=== PATIENT | female | born 1965 | race Caucasian/White ===

== ENCOUNTER 2017-07-06 08:42 | Observation (INO) | payer MEDICAID ==
[~2017-07-06] VITALS: Ht 175.3 cm; Wt 101.9 kg
--- NOTE | ~2017-07-06 | EC ---
PATIENT:ESTHER BARCENAS DATE OF SERVICE: 07/06/17 SEX: F MEDICAL RECORD: [id number] DATE OF : 65 LOCATION:D.M2 D.212 AGE OF PATIENT: 51 ADMISSION DATE: 07/06/17 REFERRING PHYSICIAN: INTERPRETING PHYSICIAN: RADHA ROLLINS MD ECHOCARDIOGRAM REPORT ECHO CHARGES 4 ECHO COMPLETE CLINICAL DIAGNOSIS: CP ECHOCARDIOGRAPHIC MEASUREMENTS (adult normal given) AC root (d.<3.7cm) 2.5 cm LV Septum d (<1.2 cm> 1.5 cm Valve Excursion 1.7 cm LV Septum (systole) 2.0 cm Left Atria (s.<4.0cm> 3.1 cm LVPW d(<1.2cm) 1.4 cm RV (d.<2.3cm) 2.7 cm LVPW (sytole) 1.8 cm LV diastole(<5.6CM) 4.9 cm MV E-F(>70mm/sec) cm LV systole 3.0 cm LVOT Diameter 1.7 cm MV exc.(>10mm) cm Est.ejection fraction (50-75%) % Pericardial Effusion N DOPPLER: LVIT cm/sec A 59.0 cm/sec E 82.0 cm/sec LA cm/sec RVSP 24.4 mmHg LVOT 111 cm/sec AOP1/2T m/s Asc. Ao 159 cm/sec RVOT 60.0 cm/sec RA cm/sec PA 77.0 cm/sec AV Gradient Peak 10.2 mmHg AV Mean 5.2 mmHg AV Area 1.4 cm MV Gradient Peak 2.9 mmHg MV Mean 1.0 mmHg MV Area cm COMMENTS: Equipment Maintenance Supervisor: Cammie [place] Crimper Assembler: Roger Rollins TAPE# PACS DATE OF SERVICE: 07/07/2017 Echocardiogram Report FINDINGS: 1. The left ventricular ejection fraction is normal at 60%. The left ventricle has mild left ventricular hypertrophy. Inflow characteristics are normal. 2. The left atrium has normal size and normal function. 3. The right ventricle shows normal size and normal function. 4. The right atrium has normal size and normal function. ECHOCARDIOGRAM REPORT [id number] ESTHER BARCENAS 5. The aortic valve is normal trileaflet in structure and function. 6. The mitral valve is normal and there is no significant evidence for mitral regurgitation or mitral stenosis. 7. The tricuspid valve is normal. 8. The pulmonic valve is not well visualized and normal. 9. The pericardium is normal and there is no pericardial effusion. TRANSINT:[id number] Voice Confirmation ID: [id number] DOCUMENT ID: [id number] RADHA ROLLINS MD CC: [id number] DICTATION DATE: 07/09/172007 SHODER FILLER: 07/09/17 2307 DIS IN 07/07/17 [facility] [address] [id number]
--- NOTE | ~2017-07-06 | EC ---
PATIENT:ESTHER BARCENAS DATE OF SERVICE: 07/06/17 SEX: F MEDICAL RECORD: [id number] DATE OF : 65 LOCATION:D.M2 D.212 AGE OF PATIENT: 51 ADMISSION DATE: 07/06/17 REFERRING PHYSICIAN: INTERPRETING PHYSICIAN: RADHA ROLLINS MD ECHOCARDIOGRAM REPORT ECHO CHARGES 4 ECHO COMPLETE CLINICAL DIAGNOSIS: CP ECHOCARDIOGRAPHIC MEASUREMENTS (adult normal given) AC root (d.<3.7cm) 2.5 cm LV Septum d (<1.2 cm> 1.5 cm Valve Excursion 1.7 cm LV Septum (systole) 2.0 cm Left Atria (s.<4.0cm> 3.1 cm LVPW d(<1.2cm) 1.4 cm RV (d.<2.3cm) 2.7 cm LVPW (sytole) 1.8 cm LV diastole(<5.6CM) 4.9 cm MV E-F(>70mm/sec) cm LV systole 3.0 cm LVOT Diameter 1.7 cm MV exc.(>10mm) cm Est.ejection fraction (50-75%) % Pericardial Effusion N DOPPLER: LVIT cm/sec A 59.0 cm/sec E 82.0 cm/sec LA cm/sec RVSP 24.4 mmHg LVOT 111 cm/sec AOP1/2T m/s Asc. Ao 159 cm/sec RVOT 60.0 cm/sec RA cm/sec PA 77.0 cm/sec AV Gradient Peak 10.2 mmHg AV Mean 5.2 mmHg AV Area 1.4 cm MV Gradient Peak 2.9 mmHg MV Mean 1.0 mmHg MV Area cm COMMENTS: Gasfitter: Cammie PACK [employer] Cameraman: 4 Dr. Rollins TAPE# PACS DATE OF SERVICE: 07/09/2017 The patient underwent a nuclear stress test. FINDINGS: The patient had the rest injections of 12.5 mCi sestamibi injected at 7:05 in the morning. Then, after standard Lexiscan protocol, which she tolerated without any difficulty, she had 31 mCi of sestamibi injected at 10:20. The patient was shown to do very well to the test. Imaging showed no evidence of ischemia or LV dysfunction. The ejection fraction was calculated to be normal at 65%. The procedure was terminated because of the completion of the ECHOCARDIOGRAM REPORT [id number] ESTHER BARCENAS test. CONCLUSION: Test is negative for ischemia. TRANSINT:[id number] Voice Confirmation ID: [id number] DOCUMENT ID: [id number] ARDHA ROLLINS MD CC: [id number] DICTATION DATE: 07/09/172003 GROUND WIRER: 07/09/17 2317 DIS IN 07/07/17 [facility] [address] [id number]
[2017-07-06 09:26] LABS: BASOPHILS 0.2 % (0-2); EOSINOPHILS 2.9 % (0-7); HEMATOCRIT 43.6 % (36.0-48.0); HEMOGLOBIN 14.8 g/dL (12-16); IMMATURE GRANULOCYTES 0.2 % (0-5); LYMPHOCYTES 32.8 % (15-50); MCH 26.3 pg (26.0-34.0); MCHC 33.9 g/dL (31.0-37.0); MCV 77.4 fL (80.0-100.0); MEAN PLATELET VOLUME 10.1 fL (7.4-10.4); MONOCYTES 6.7 % (2-11); NEUTROPHILS 57.2 % (40-80); PLATELET COUNT 209 10x3/uL (130-400); RBC 5.63 10x6/uL (4.00-5.40); RDW 17.2 % (11.5-14.5); WBC 4.8 10x3/uL (4.8-10.8)
[2017-07-06 09:42] LABS: ALKALINE PHOSPHATASE 124 U/L (46-116); ALT (SGPT) 41 U/L (10-68); BILIRUBIN - TOTAL 0.19 mg/dL (0.2-1.3); CALC OSMOLALITY 283 mosm/kg (275-300); CARBON DIOXIDE 26.7 mmol/L (21.0-32.0); CHLORIDE - SERUM 105 mmol/L (98-107); CREATININE - SERUM 0.8 mg/dL (0.6-1.3); GLUCOSE 96 mg/dL (74-106); POTASSIUM - SERUM 4.1 mmol/L (3.5-5.1); PROTEIN - SERUM 7.4 g/dL (6.4-8.2); SODIUM 141 mmol/L (136-145); UREA NITROGEN 20 mg/dL (7-18); eGFR NON AFRICAN AMERICAN 80 mL/min (90-120)
[2017-07-06 09:57] LABS: CKMB 1.3 U/L (0.0-3.6); CREATINE KINASE 116 UL (21-215)
[2017-07-06 10:00] LABS: TROPONIN-I < 0.017 ng/mL (0.000-0.060)
[2017-07-06] MEDS ORDERED: ELIQUIS5 MG PO (11:28)
[2017-07-06] MEDS ORDERED: SYNTHROID125 MCG PO (11:29)
[2017-07-06] MEDS ORDERED: NORVASC5 MG PO (11:29)
[2017-07-06] MEDS ORDERED: PROZAC20 MG PO (11:30)
[2017-07-06] MEDS ORDERED: NEURONTIN600 MG PO (11:30)
[2017-07-06] MEDS ORDERED: OMEPRAZOLE40 MG PO (11:31)
[2017-07-06] MEDS ORDERED: VITAMIN D31000 UNIT PO (11:32)
[2017-07-06] MEDS ORDERED: VITAMIN B-122500 MCG PO (11:32)
[2017-07-06] MEDS ORDERED: FERROUS SULFAT325 MG PO (11:33)
[2017-07-06] MEDS ORDERED: COPAXONE INJ20 MG/ML SQ (11:34)
[2017-07-06 11:37] VITALS: BP 139/81; Ht 175.3 cm; Wt 101.9 kg
[2017-07-06 12:48] VITALS: BP 139/81
[2017-07-06 16:53] VITALS: BP 143/82
[2017-07-06 19:00] VITALS: BP 129/76
[2017-07-07] VITALS: BP 150/88
[2017-07-07 04:00] VITALS: BP 149/86
[2017-07-07 09:00] VITALS: BP 152/86
[2017-07-07 13:27] VITALS: BP 142/90
[2017-07-07] MEDS ORDERED: PROZAC20 MG PO (13:54)
[2017-07-07] MEDS ORDERED: SYNTHROID125 MCG PO (13:54)
[2017-07-07] MEDS ORDERED: NEURONTIN600 MG PO (13:54)
[2017-07-07] MEDS ORDERED: ELIQUIS5 MG PO (13:54)
[2017-07-07] MEDS ORDERED: NORVASC5 MG PO (13:54)
[2017-07-07] MEDS ORDERED: COPAXONE INJ20 MG/ML SQ (13:54)
[2017-07-07] MEDS ORDERED: FERROUS SULFAT325 MG PO (13:54)
[2017-07-07] MEDS ORDERED: VITAMIN D31000 UNIT PO (13:54)
[2017-07-07] MEDS ORDERED: VITAMIN B-122500 MCG PO (13:54)
== END 2017-07-07 14:56 | disposition home or self-care (01) ==
LOC: D.ER 08:42 → D.M2 10:24 → OBSVTIME 10:24 → D.M2 10:24
PROVIDERS: Emergency Medicine; ADMIT Internal Medicine Cardiovascular Disease
DX: I24.9 Acute ischemic heart disease, unspecified (principal)

== ENCOUNTER → 2017-08-30 16:23 | Outpatient (CLI) | payer MEDICAID ==
[2017-07-06 11:37] VITALS: BMI 33.2
[~2017-08-30 16:23] MED LIST: COPAXONE INJ20 MG/ML SQ; ELIQUIS5 MG PO; FERROUS SULFAT325 MG PO; NEURONTIN600 MG PO; NORVASC5 MG PO; OMEPRAZOLE40 MG PO; PROZAC20 MG PO; SYNTHROID125 MCG PO; VITAMIN B-122500 MCG PO; VITAMIN D31000 UNIT PO
== END | disposition home or self-care (01) ==
LOC: D.LABREF 16:23
DX: R07.9 Chest pain, unspecified (principal)

== ENCOUNTER 2020-05-27 11:45 | Outpatient (CLI) | payer OTHER ==
[2017-07-06 11:37] VITALS: BMI 33.2
== END 2020-05-27 11:46 | disposition home or self-care (01) ==
LOC: D.MAMMO 11:45
PROVIDERS: ATTEND Family Medicine
DX: Z12.31 Encounter for screening mammogram for malignant neoplasm of breast (principal)

== ENCOUNTER → 2020-07-03 11:14 | Outpatient (CLI) | payer OTHER ==
[2017-07-06 11:37] VITALS: BMI 33.2
== END | disposition home or self-care (01) ==
LOC: D.US 11:00
PROVIDERS: ATTEND Family Medicine
DX: R92.8 Other abnormal and inconclusive findings on diagnostic imaging of breast (principal)

== ENCOUNTER 2020-12-28 09:00 | Outpatient (CLI) | payer MEDICARE ==
[2017-07-06 11:37] VITALS: BMI 33.2
== END 2020-12-28 23:59 | disposition home or self-care (01) ==
LOC: D.MAMMO 09:00
PROVIDERS: ATTEND Family Medicine
DX: R92.8 Other abnormal and inconclusive findings on diagnostic imaging of breast (principal)